=== PATIENT | female | born 1980 | race African-American/Black ===

== ENCOUNTER 2019-07-15 12:13 | Emergency (ER) | payer OTHER ==
[~2019-07-15] VITALS: Ht 152.4 cm; Wt 61.2 kg
[~2019-07-15 12:13] MED LIST: BACTRIM DS TAB1 EACH PO; FLONASE 0.05%50 MCG NASAL; NOHOMEMEDICATIONS
[2019-07-15 13:35] LABS: ABSOLUTE NEUTROPHILS 3.5 thou/uL (1.4-8.2); BASOPHILS 1.1 % (0.0-2.0); EOSINOPHILS 2.5 % (0.0-3.0); HEMATOCRIT 34.3 % (37.0-47.0); HEMOGLOBIN 11.3 gm/dL (12.0-15.0); LYMPHOCYTES 30.6 % (24.0-44.0); MCH 28.4 pg (26.0-34.0); MCHC 32.9 g/dL (28.0-37.0); MCV 86.2 fL (80.0-100.0); MONOCYTES 7.7 % (1.0-8.0); PLATELET COUNT 214 thou/uL (150-400); POLYS 58.1 % (36.0-66.0); RBC 3.98 mil/uL (4.20-5.00); RDW 14.6 % (10.5-14.5)
[2019-07-15 13:46] LABS: CREATININE 0.6 mg/dL (0.6-1.0)
[2019-07-15 13:52] LABS: ALBUMIN 3.3 g/dL (3.4-5.0); TOTAL BILIRUBIN 0.5 mg/dL (<0.1-1.0); TOTAL PROTEIN 6.7 g/dL (6.4-8.2)
[2019-07-15] MEDS ORDERED: ULTRAM 50MG TAB50 MG PO (15:00)
[2019-07-15] MEDS ORDERED: ONDANSETRON HCL4 M2 PO (15:06)
[2019-07-15 15:30] VITALS: BP 138/86
== END 2019-07-15 15:35 | disposition home or self-care (01) ==
LOC: ER 12:13
PROVIDERS: Physician Assistant
DX: M79.89 Other specified soft tissue disorders (principal); M21.612 Bunion of left foot; M79.671 Pain in right foot; Z98.890 Other specified postprocedural states; Z79.2 Long term (current) use of antibiotics; Z79.899 Other long term (current) drug therapy